=== PATIENT | female | born 1995 | race Caucasian/White ===

== ENCOUNTER 2018-07-23 18:02 | Outpatient (REF) | payer OTHER, SELFPAY | END 2018-07-23 18:22 | LOC: LBN 18:02 | PROVIDERS: PCP Nurse Practitioner Family; Visit Provider Nurse Practitioner Women's Health | DX: N89.8 Other specified noninflammatory disorders of vagina (principal) | CPT/HCPCS: 87480; 87510; 87660 ==

== ENCOUNTER 2018-11-23 09:50 | Outpatient (CLI) | payer OTHER, SELFPAY ==
--- NOTE | 2018-11-23 14:08 | DI.US_ITS ---
SYMPTOMS/DIAGNOSIS: LEFT LOWER QUADRANT PAIN, R10.32 PELVIC ULTRASOUND: Transabdominal and transvaginal examination was performed. The uterus measures 6.3 cm long x 1.8 cm AP x 3.1 cm transverse. The endometrial stripe is within normal limits at 0.3 cm. No suspicious masses seen. The right ovary measures 3.7 x 2.8 x 2.1 cm, the left ovary measures 2.6 x 1.8 x 1.5 cm. Small follicular cysts are present. There is normal blood flow. No evidence of torsion is seen. No significant free pelvic fluid or hydronephrosis is identified. IMPRESSION: Normal pelvic ultrasound.
== END 2018-11-23 10:10 ==
PROVIDERS: PCP Nurse Practitioner Family; Visit Provider Obstetrics & Gynecology Gynecology
DX: R10.2 Pelvic and perineal pain (principal); R10.32 Left lower quadrant pain; N83.02 Follicular cyst of left ovary
CPT/HCPCS: 76830; 76856

== ENCOUNTER 2019-04-06 15:07 | Outpatient (CLI) | payer OTHER, SELFPAY | END 2019-04-06 15:27 | PROVIDERS: PCP Nurse Practitioner Family; Visit Provider Nurse Practitioner Family | DX: R00.2 Palpitations (principal) | CPT/HCPCS: 36415; 84443 ==

== ENCOUNTER 2019-04-07 07:56 | Outpatient (CLI) | payer OTHER, SELFPAY | END 2019-04-07 08:16 | PROVIDERS: PCP Nurse Practitioner Family; Visit Provider Nurse Practitioner Family | DX: R00.2 Palpitations (principal) | CPT/HCPCS: 93225 ==

== ENCOUNTER 2019-04-08 14:12 | Outpatient (CLI) | payer OTHER, SELFPAY ==
--- NOTE | 2019-04-13 12:42 | HOLTER_ITS ---
DATE OF INTERPRETATION: April 13, 2019 STUDY INDICATIONS: Palpitations. REQUESTING PROVIDER: Monika Freeman N.P. FINDINGS: The patient was monitored for 1 day and 2 hours. The baseline rhythm was sinus rhythm. Average heart rate 71 bpm, range 47-117 bpm. There was no ectopy. There were no tachy or bradyarrhythmias. FINAL INTERPRETATION: Normal study.
== END 2019-04-08 14:32 ==
PROVIDERS: PCP Nurse Practitioner Family; Visit Provider Nurse Practitioner Family
DX: R00.2 Palpitations (principal)
CPT/HCPCS: 93226

== ENCOUNTER 2019-08-24 18:20 | Outpatient (REF) | payer OTHER, SELFPAY ==
[2019-08-26 15:32] LABS: Chlamydia Result Negative (Negative)
[2019-08-29 10:48] LABS: GC Result Negative (Negative)
== END 2019-08-24 18:40 ==
LOC: LBN 18:20
PROVIDERS: PCP Nurse Practitioner Family; Visit Provider Nurse Practitioner Women's Health
DX: Z11.3 Encounter for screening for infections with a predominantly sexual mode of transmission (principal)
CPT/HCPCS: 87491; 87591